=== PATIENT | female | born 1995 | race Caucasian/White ===

== ENCOUNTER 2020-10-25 14:20 | Inpatient (IN) | payer OTHER ==
[2020-10-25 16:19] VITALS: BMI 19.1
[2020-10-25] MEDS ORDERED: MAGNESIUM CITRATE 300 ML BOTTLE PO PRN (18:53)
[2020-10-25] MEDS ORDERED: BISMUTH SUBSALICYLATE 524 MG/30 ML PO PRN (18:53)
[2020-10-25] MEDS ORDERED: MAGNESIUM HYDROX 2400MG/30ML ORAL SUSPENSION 30 ML CUP PO PRN (18:53)
[2020-10-25] MEDS ORDERED: METHADONE HCL 10 MG TABLET (FOR DETOX USE ONLY) PO ONE (18:53)
[2020-10-25] MEDS ORDERED: MAG HYDROX/AL HYDROX/SIMETH 30 ML UNIT-DOSE CUP PO PRN (18:53)
[2020-10-25] MEDS ORDERED: MENTHOL/PHENOL 1 EACH UD MM PRN (18:53)
[2020-10-25] MEDS ORDERED: ACETAMINOPHEN 325 MG TABLET (FP) PO PRN (18:53)
[2020-10-25] MEDS: diazePAM 5 MG TABLET PO PRN (20:48)
[2020-10-25] MEDS: ONDANSETRON *ODT* 4 MG TABLET SL PRN (20:50)
[2020-10-25] MEDS: MELATONIN 5 MG TABLETS PO SCH (23:07)
[2020-10-25] MEDS: THIAMINE HCL 100 MG TABLET (FP) PO SCH (23:07)
[2020-10-25] MEDS: IBUPROFEN 400 MG TABLET (FP) PO PRN (23:08)
[2020-10-25] MEDS: diazePAM 5 MG TABLET PO SCH (23:08)
[2020-10-26] MEDS: ONDANSETRON *ODT* 4 MG TABLET SL PRN (05:24)
[2020-10-26] MEDS: diazePAM 5 MG TABLET PO SCH ×4 (05:24→22:23)
[2020-10-26] MEDS: hydrOXYzine PAMOATE 25 MG CAPSULE (FP) PO PRN (05:25)
[2020-10-26] MEDS: METHOCARBAMOL 500 MG TABLET PO PRN ×3 (05:28→18:18)
[2020-10-26] MEDS ORDERED: TRIMETHOBENZAMIDE HCL 200MG/2ML INJ IM ONE (05:56)
[2020-10-26] MEDS ORDERED: METHADONE HCL 10 MG TABLET (FOR DETOX USE ONLY) PO ONE (07:31)
[2020-10-26] MEDS ORDERED: METHADONE HCL 5 MG TABLET (FOR DETOX USE ONLY) ONE (09:22)
[2020-10-26] MEDS ORDERED: METHADONE HCL 10 MG TABLET (FOR DETOX USE ONLY) ONE (09:22)
[2020-10-26] MEDS ORDERED: METHADONE (DETOX) 20 MG, METHADONE (DETOX) 5 MG PO ONE (10:00)
[2020-10-26 10:19] LABS: HEMOGLOBIN 12.4 GM/dL (10.7-15.3); MCH 29.8 pg (25.7-33.7); MCHC 33.6 g/dl (32.0-36.0); MEAN CELL VOLUME 88.7 fl (80-96); MEAN PLT VOLUME 10.3 fl (7.5-11.1); PLATELET COUNT 93 K/MM3 (134-434); RBC 4.17 M/mm3 (3.60-5.2); RDW 14.6 % (11.6-15.6)
[2020-10-26 10:21] LABS: CALCIUM 8.9 mg/dL (8.5-10.1)
[2020-10-26 10:22] LABS: ALBUMIN 3.3 g/dl (3.4-5.0); BLOOD UREA NITROGEN 17.7 mg/dL (7-18)
[2020-10-26 10:25] LABS: CREATININE 0.9 mg/dL (0.55-1.3)
[2020-10-26 10:27] LABS: BILIRUBIN,TOTAL 0.6 mg/dL (0.2-1); TOT PROT 6.9 g/dl (6.4-8.2)
[2020-10-26] MEDS: PRENATAL VITAMINS W/ FOLIC ACID TABLET (FP) PO SCH (10:30)
[2020-10-26] MEDS ORDERED: TRIMETHOBENZAMIDE HCL 300 MG CAPSULE PO PRN (13:00)
[2020-10-26] MEDS: cloNIDine HCL 0.1 MG TABLET PO PRN ×2 (13:28→20:33)
[2020-10-26] MEDS: IBUPROFEN 400 MG TABLET (FP) PO PRN ×2 (13:28→20:33)
[2020-10-26] MEDS: NICOTINE POLACRILEX 2 MG GUM BUC PRN (18:20)
[2020-10-26] MEDS: ACETAMINOPHEN 325 MG TABLET (FP) PO PRN (22:22)
[2020-10-26] MEDS: MELATONIN 5 MG TABLETS PO SCH (22:23)
[2020-10-26] MEDS: THIAMINE HCL 100 MG TABLET (FP) PO SCH (22:23)
[2020-10-27] MEDS: diazePAM 5 MG TABLET PO SCH ×3 (05:47→22:08)
[2020-10-27] MEDS: hydrOXYzine PAMOATE 25 MG CAPSULE (FP) PO PRN ×4 (05:48→18:46)
[2020-10-27] MEDS: METHOCARBAMOL 500 MG TABLET PO PRN ×3 (05:48→18:46)
[2020-10-27] MEDS: cloNIDine HCL 0.1 MG TABLET PO PRN ×2 (08:33→16:32)
[2020-10-27] MEDS: diazePAM 5 MG TABLET PO PRN ×3 (08:34→20:05)
[2020-10-27] MEDS: IBUPROFEN 400 MG TABLET (FP) PO PRN (08:34)
[2020-10-27] MEDS ORDERED: METHADONE HCL 10 MG TABLET (FOR DETOX USE ONLY) PO ONE (10:00)
[2020-10-27] MEDS: ACETAMINOPHEN 325 MG TABLET (FP) PO PRN ×3 (10:02→22:09)
[2020-10-27] MEDS: PRENATAL VITAMINS W/ FOLIC ACID TABLET (FP) PO SCH (10:45)
[2020-10-27 11:05] LABS: BASO % 0.3 % (0-2.0); EOS % 1.7 % (0-4.5); HEMATOCRIT 37.3 % (32.4-45.2); HEMOGLOBIN 12.5 GM/dL (10.7-15.3); LYMPH % 25.9 % (8-40); MCH 29.5 pg (25.7-33.7); MCHC 33.6 g/dl (32.0-36.0); MEAN CELL VOLUME 87.9 fl (80-96); MEAN PLT VOLUME 9.7 fl (7.5-11.1); MONO % 8.1 % (3.8-10.2); PLATELET COUNT 124 K/MM3 (134-434); RBC 4.24 M/mm3 (3.60-5.2); RDW 14.3 % (11.6-15.6); WHITE BLOOD COUNT 13.7 K/mm3 (4.0-10.0)
[2020-10-27 12:46] LABS: ANISOCYTOSIS 0; MACROCYTOSIS 0; PLATELET ESTIMATE DECREASED
[2020-10-27] MEDS: NICOTINE POLACRILEX 2 MG GUM BUC PRN ×2 (15:44→18:46)
[2020-10-27] MEDS: THIAMINE HCL 100 MG TABLET (FP) PO SCH (22:07)
[2020-10-27] MEDS: MELATONIN 5 MG TABLETS PO SCH (22:08)
[2020-10-28] MEDS: diazePAM 5 MG TABLET PO SCH ×2 (06:30→17:20)
[2020-10-28] MEDS: hydrOXYzine PAMOATE 25 MG CAPSULE (FP) PO PRN ×2 (06:31→20:24)
[2020-10-28] MEDS: METHOCARBAMOL 500 MG TABLET PO PRN ×3 (06:31→20:24)
[2020-10-28] MEDS: diazePAM 5 MG TABLET PO PRN ×2 (08:51→13:53)
[2020-10-28] MEDS ORDERED: METHADONE HCL 5 MG TABLET (FOR DETOX USE ONLY) ONE (09:03)
[2020-10-28] MEDS ORDERED: METHADONE HCL 10 MG TABLET (FOR DETOX USE ONLY) ONE (09:03)
[2020-10-28] MEDS ORDERED: METHADONE (DETOX) 10 MG, METHADONE (DETOX) 5 MG PO ONE (10:00)
[2020-10-28] MEDS: PRENATAL VITAMINS W/ FOLIC ACID TABLET (FP) PO SCH (10:07)
[2020-10-28] MEDS: cloNIDine HCL 0.1 MG TABLET PO PRN ×2 (11:29→18:23)
[2020-10-28] MEDS: LIDOCAINE 5% TOPICAL PATCH TP SCH (11:30)
[2020-10-28] MEDS: NICOTINE POLACRILEX 2 MG GUM BUC PRN ×2 (13:54→20:24)
[2020-10-28] MEDS: ACETAMINOPHEN 325 MG TABLET (FP) PO PRN (18:24)
[2020-10-28] MEDS ORDERED: LIDOCAINE PATCH REMOVAL MC SCH (22:00)
[2020-10-28] MEDS: MELATONIN 5 MG TABLETS PO SCH (22:17)
[2020-10-28] MEDS: THIAMINE HCL 100 MG TABLET (FP) PO SCH (22:17)
[2020-10-29] MEDS: METHOCARBAMOL 500 MG TABLET PO PRN (05:46)
[2020-10-29] MEDS: NICOTINE POLACRILEX 2 MG GUM BUC PRN (05:47)
[2020-10-29] MEDS ORDERED: diazePAM 5 MG TABLET PO ONE (06:00)
[2020-10-29 09:25] VITALS: BP 102/73; PULSE 84; TEMP 98.1
[2020-10-29] MEDS: ACETAMINOPHEN 325 MG TABLET (FP) PO PRN (09:33)
[2020-10-29] MEDS: LIDOCAINE 5% TOPICAL PATCH TP SCH (09:33)
[2020-10-29] MEDS: PRENATAL VITAMINS W/ FOLIC ACID TABLET (FP) PO SCH (09:36)
[2020-10-29] MEDS ORDERED: METHADONE HCL 10 MG TABLET (FOR DETOX USE ONLY) PO ONE (10:00)
[2020-10-29 13:06] LABS: SARS-CoV-2 NAA Not Detected (Not Detected)
[2020-10-30] MEDS ORDERED: METHADONE HCL 5 MG TABLET (FOR DETOX USE ONLY) PO ONE (06:00)
== END 2020-10-29 11:04 | disposition home or self-care (01) | DRG 773 ==
LOC: YASAS 14:20 → Y6N 18:22
PROVIDERS: ADMIT Allergy & Immunology; ATTEND Allergy & Immunology
PROC: HZ2ZZZZ Detoxification Services for Substance Abuse Treatment (ICD-10-PCS; principal; 2020-10-25)
DX: F11.23 Opioid dependence with withdrawal (principal); F13.230 Sedative, hypnotic or anxiolytic dependence with withdrawal, uncomplicated; F12.20 Cannabis dependence, uncomplicated; F17.210 Nicotine dependence, cigarettes, uncomplicated; F41.1 Generalized anxiety disorder; F43.10 Post-traumatic stress disorder, unspecified; D69.6 Thrombocytopenia, unspecified; D72.829 Elevated white blood cell count, unspecified; J45.909 Unspecified asthma, uncomplicated; K21.9 Gastro-esophageal reflux disease without esophagitis; M54.5 Low back pain; G89.29 Other chronic pain; B18.2 Chronic viral hepatitis C; Z86.19 Personal history of other infectious and parasitic diseases
CPT/HCPCS: 36415; 80053; 85025; 85027; 86780; 93005; 93010; C9803; J0735; Q0162; U0003; U0005